=== PATIENT | male | born 1940 | race African-American/Black ===

== ENCOUNTER 2022-02-07 19:13 | Emergency (ER) | payer MEDICARE, OTHER ==
[~2022-02-07] VITALS: Ht 180.3 cm; Wt 65.0 kg
[2022-02-07 19:22] VITALS: BP 160/67
== END 2022-02-07 22:40 | disposition home or self-care (01) ==
LOC: EMS 19:15
DX: S62.502A Fracture of unspecified phalanx of left thumb, initial encounter for closed fracture (principal); F17.210 Nicotine dependence, cigarettes, uncomplicated; W57.XXXA Bitten or stung by nonvenomous insect and other nonvenomous arthropods, initial encounter; Y93.89 Activity, other specified; Y92.89 Other specified places as the place of occurrence of the external cause; Y99.8 Other external cause status
CPT/HCPCS: 99283